=== PATIENT | female | born 1985 | race Caucasian/White ===

== ENCOUNTER 2017-11-10 13:55 | Observation (INO) | payer BC ==
[~2017-11-10] VITALS: Ht 177 cm; Wt 74.0 kg
[2017-11-10] MEDS ORDERED: DEXT 5%/0.45% NACL 1000ML 1,000 ML IV SCH (14:15)
[2017-11-10 15:41] LABS: CHLORIDE 105 mEq/L (98-107)
[2017-11-10 18:05] LABS: CLARITY URINE CLEAR (CLEAR); COLOR URINE YELLOW (YELLOW); KETONES URINE 1+ (NEGATIVE); LEUKOCYTE ESTERASE URINE NEGATIVE (NEGATIVE); NITRITE URINE NEGATIVE (NEGATIVE); OCCULT BLOOD URINE NEGATIVE (NEGATIVE); PROTEIN URINE NEGATIVE (NEGATIVE); SPECIFIC GRAVITY URINE 1.005 (1.005-1.030); UROBILINOGEN URINE 0.2 E.U./dL (0.2-1.0)
[2017-11-10 18:15] LABS: *AMPHETAMINES SCREEN URINE NEGATIVE (NEGATIVE); *BARBITURATES SCREEN URINE NEGATIVE (NEGATIVE); *BENZODIAZEPINES SCREEN URINE NEGATIVE (NEGATIVE); *COCAINE SCREEN URINE NEGATIVE (NEGATIVE); CANNABINOID URINE SCREEN NEGATIVE (NEGATIVE); METHADONE URINE SCREEN NEGATIVE (NEGATIVE); OPIATES URINE SCREEN NEGATIVE (NEGATIVE); PHENCYCLIDINE URINE SCREEN NEGATIVE (NEGATIVE)
[2017-11-10] MEDS: DEXT 5%/0.45% NACL KCL 40MEQ/L 1,000 ML IV SCH (18:34)
[2017-11-10] MEDS: AMPICILLIN 2,000 MG in SODIUM CHLORIDE 0.9% 100 ML IV SCH ×2 (18:34→22:41)
[2017-11-10 19:08] LABS: HEMATOCRIT. 37.7 % (36.0-48.0); HEMOGLOBIN. 13.2 g/dL (12.0-16.0); MEAN CORPUSCULAR HEMOGLOBIN 34.5 pg (28.0-32.0); MEAN PLATELET VOLUME 8.1 fl (7.4-10.4); PLATELET 225 x1000/uL (130-400); RED BLOOD CELL COUNT 3.84 mill/uL (4.2-5.4)
[2017-11-10 19:14] LABS: PARTIAL THROMBOPLASTIN TIME 26.1 sec (23.4-31.0)
[2017-11-10 19:45] LABS: HEPATITIS B SURFACE ANTIGEN NEGATIVE
[2017-11-10 19:47] LABS: PLATELET ESTIMATE NORMAL
[2017-11-10 19:53] LABS: RUBELLA IGG > 500.0 IU/mL (4.99-10)
[2017-11-10] MEDS ORDERED: VITAMINS A AND D OINT TUBE TOP PRN (23:00)
[2017-11-10] MEDS ORDERED: ZINC OXIDE 20% OINT 30GM TOP PRN (23:00)
[2017-11-10] MEDS: ACETAMINOPHEN 325MG TABLET PO PRN (23:33)
[2017-11-10] MEDS: ZOLPIDEM TARTRATE 5MG TABLET PO PRN (23:42)
[2017-11-11 00:15] LABS: CHLORIDE 107 mEq/L (98-107)
[2017-11-11] MEDS: AMPICILLIN 2,000 MG in SODIUM CHLORIDE 0.9% 100 ML IV SCH ×6 (02:18→22:55)
[2017-11-11] MEDS: DEXT 5%/0.45% NACL KCL 40MEQ/L 1,000 ML IV SCH ×2 (02:19→11:00)
[2017-11-11] MEDS: MAGNESIUM/ALUMINUM HYDROXIDE/SIMETHICONE 30ML UDC PO PRN ×2 (08:37→23:56)
[2017-11-11] MEDS: ACETAMINOPHEN 325MG TABLET PO PRN ×3 (08:41→23:49)
[2017-11-11 15:21] LABS: CHLORIDE 109 mEq/L (98-107)
[2017-11-11] MEDS: DEXT 5%/0.45% NACL KCL 20MEQ/L 1,000 ML IV SCH (18:31)
[2017-11-11] MEDS ORDERED: ZOLPIDEM TARTRATE 5MG TABLET PO PRN (22:00)
[2017-11-11] MEDS: ZOLPIDEM TARTRATE 5MG TABLET PO PRN (23:44)
[2017-11-12] MEDS: AMPICILLIN 2,000 MG in SODIUM CHLORIDE 0.9% 100 ML IV SCH ×5 (03:07→18:38)
[2017-11-12] MEDS: DEXT 5%/0.45% NACL KCL 20MEQ/L 1,000 ML IV SCH ×3 (05:15→17:37)
[2017-11-12 06:22] LABS: BASOPHILS % 0.2 % (0.0-2.0); EOSINOPHILS % 1.1 % (0.0-5.0); HEMATOCRIT. 33.8 % (36.0-48.0); HEMOGLOBIN. 11.9 g/dL (12.0-16.0); LYMPHOCYTES % 21.7 % (20.0-50.0); MEAN CORPUSCULAR HEMOGLOBIN 34.4 pg (28.0-32.0); MEAN PLATELET VOLUME 7.8 fl (7.4-10.4); MONOCYTES % 6.1 % (2.0-8.0); NEUTROPHILS % 70.9 % (40.0-76.0); PLATELET 192 x1000/uL (130-400); RED BLOOD CELL COUNT 3.45 mill/uL (4.2-5.4); RED CELL DISTRIBUTION WIDTH 13.1 % (11.6-14.6)
[2017-11-12 06:46] LABS: CHLORIDE 111 mEq/L (98-107)
[2017-11-12] MEDS: MAGNESIUM/ALUMINUM HYDROXIDE/SIMETHICONE 30ML UDC PO PRN ×2 (07:58→13:54)
[2017-11-12] MEDS ORDERED: PRENATAL VIT/FE FUMARATE/FA TABLET PO SCH (09:00)
[2017-11-12] MEDS: ACETAMINOPHEN 325MG TABLET PO PRN (15:02)
== END 2017-11-12 20:08 | disposition home or self-care (01) ==
LOC: L&D 13:55
PROVIDERS: ADMIT Obstetrics & Gynecology; ATTEND Obstetrics & Gynecology
DX: O99.613 Diseases of the digestive system complicating pregnancy, third trimester (principal); K52.9 Noninfective gastroenteritis and colitis, unspecified; E86.0 Dehydration; Z3A.33 33 weeks gestation of pregnancy
CPT/HCPCS: 36415; 76805; 76818; 80048; 80053; 80305; 81003; 82731; 85025; 85610; 85730; 86592; 86703; 86762; 86850; 86900; 86901; 87015; 87040; 87045; 87186; 87340; 87427; 87449; 87493; 96361; 96365; 96366; 96368; 96375; 96376; G0378; J0290; J7120; J3490; J7050; A4315